=== PATIENT | female | born 1990 | race Caucasian/White ===

== ENCOUNTER 2017-07-20 06:08 | Day surgery (SDC) | payer OTHER ==
[~2017-07-20] VITALS: Ht 157.5 cm; Wt 62.5 kg
[2017-07-20 07:14] VITALS: Ht 157.5 cm; Wt 62.5 kg
[2017-07-20] MEDS ORDERED: ADVIL PO (07:15)
--- NOTE | 2017-07-20 07:35 | OPPN ---
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
[2017-07-20] MEDS ORDERED: FENTAnyl 50 MCG/ML VIAL ONE (07:57)
[2017-07-20] MEDS ORDERED: MIDAZOLAM 1 MG/ML 2 ML INJ ONE ×2 (07:57)
--- NOTE | 2017-07-20 10:37 | GILP ---
DATE OF PROCEDURE: NAME OF PROCEDURES: Esophagogastroduodenoscopy and biopsy. SURGEON: Brendan Tong MD PREOPERATIVE DIAGNOSES: 1. Abdominal pain. 2. Chronic heartburn. POSTOPERATIVE DIAGNOSES: 1. Gastroesophageal reflux disease. 2. Gastritis with erosions. 3. Gastric mucosal biopsies were taken for Helicobacter pylori test. INDICATION FOR THE PROCEDURE: Ms. Stormy Bettencourt is a 26-year-old female patient who had upper ab dominal pain and chronic heartburn, not responding to therapy. Patient was scheduled for endoscopic examination for further evaluation. The procedure and possible complications were well explained to the patient, she understood and cons ented to the procedure. DESCRIPTION OF PROCEDURE: Under the influence of fentanyl and Versed, the gastroscope was carefully introduced into the esophagus and under direct vision, it was advanced to the stomach and through t he pylorus into the duodenal bulb and descending duodenum. FINDINGS: ESOPHAGUS: The patient had gastroesophageal reflux disease. STOMACH: She had gastritis with erosions. Gastric mucosal biopsies were taken for H. pylori test. DUODENUM: Normal. She tolerated the procedure very well and there was no complication from the procedure. At the end of the procedures, she was awake with stable vital signs and she was discharged home to the care of her family. IMPRESSION: 1. Gastroesophageal reflux disease. 2. Gastritis with erosions. 3. Gastric mucosal biopsies were taken for Helicobacter pylori test. PLAN: 1. Omeprazole 40 mg p.o. q.a.m. 2. Await H. pylori test report. Dictated By: BRENDAN MESA/BRIGID Conf#: [id number] DID#: [id number]
--- NOTE | 2017-07-20 19:51 | CONS ---
DATE OF ADMISSION: 07/20/2017 DATE OF CONSULTATION: PATIENT NAME: SANG LEDBETTER TYPE OF CONSULTATION: Preoperative gastroenterology. Dear Dr. Crawford: I thank you very much for this kind referral. HISTORY OF PRESENT ILLNESS: Ms. Sang Ledbetter is a 26-year-old female patient who has been refer red to me for further evaluation of upper abdominal pain and chronic heartburn. There is no past hi story of peptic ulcer disease. The patient has been taking Advil. Her appetite has been good. No history of weight loss. No history of gallstones or liver disease. The patient had abdominal ultra sound and it was normal. Denies any change in the bowel habit or rectal bleeding. No history of in flammatory bowel disease, not a hypertensive or diabetic. No heart disease or lung problem or kidne y disease, nonsmoker. No alcohol abuse, no family history of gastrointestinal tract neoplasm. NO D RUG ALLERGIES. MEDICATIONS: Advil. PHYSICAL EXAMINATION: VITAL SIGNS: She is 5 feet 2 inches tall and weighs 130 pounds, normal heart sounds. LUNGS: Clear. ABDOMEN: Soft. No masses. Normal bowel sounds. The patient has got epigastric tenderness. NEURO LOGIC: Normal exam. IMPRESSION: 1. Upper abdominal pain and chronic heartburn, not responding to therapy. 2. The patient has been taking Advil. PLAN: 1. Pantoprazole 40 mg p.o. q.a.m. 2. Endoscopic examination for further evaluation. 3. The patient had abdominal ultrasound and it was normal. The procedure and possible complications are well explained to the patient. She understands and con sents to the procedure. I thank you once again. With warmest personal regards, Dictated By: BRENDAN MESA/BRIGID Conf#: [id number] DID#: [id number]
== END 2017-07-20 10:50 | disposition home or self-care (01) ==
LOC: GIL 06:08
PROVIDERS: ATTEND Internal Medicine Gastroenterology
DX: K21.9 Gastro-esophageal reflux disease without esophagitis (principal); K29.60 Other gastritis without bleeding
CPT/HCPCS: 43239; 84703; 87081; J2250; J3010; Z7610

== ENCOUNTER 2018-11-09 05:47 | Day surgery (SDC) | payer OTHER ==
[~2018-11-09] VITALS: Ht 157.5 cm; Wt 58.6 kg
[~2018-11-09 05:47] MED LIST: ADVIL PO
[2018-11-09 06:25] VITALS: Ht 157.5 cm; Wt 58.6 kg
[2018-11-09] MEDS ORDERED: tylenol (07:13)
[2018-11-09] MEDS ORDERED: ibuprofen (07:13)
[2018-11-09] MEDS ORDERED: omeprazole (07:13)
[2018-11-09 07:15] VITALS: BP 108/60; PULSE 68; RESP 19
[2018-11-09] MEDS ORDERED: MIDAZOLAM 1 MG/ML 2 ML INJ ONE ×2 (08:11)
[2018-11-09] MEDS ORDERED: FENTAnyl 50 MCG/ML VIAL ONE (08:11)
[2018-11-09 08:28] VITALS: BP 110/63; PULSE 65; RESP 18
--- NOTE | 2018-11-09 10:19 | CONS ---
DATE OF ADMISSION: 11/09/2018 DATE OF CONSULTATION: PATIENT NAME: SANG LEDBETTER TYPE OF CONSULTATION: Preoperative gastroenterology. Dear Dr. Crawford: I thank you very much for this kind referral. HISTORY OF PRESENT ILLNESS: Ms. Sang Ledbetter is a 28-year-old female patient who has been referr ed to me for further evaluation of upper abdominal pain and chronic heartburn, not responding to ther apy with omeprazole. The patient is not taking any nonsteroidal anti-inflammatory agents. Appetite is somewhat poor. No history of gallstones or liver disease. Denies any change in the bowel habit o r rectal bleeding. Not a hypertensive or diabetic. No heart disease, lung problem or kidney disease . SOCIAL HISTORY: Nonsmoker. No alcohol abuse. FAMILY HISTORY: No family history of gastrointestinal tract neoplasm. ALLERGIES: NO DRUG ALLERGIES. MEDICATIONS: Omeprazole. PHYSICAL EXAMINATION: VITAL SIGNS: She is 5 feet, 2 inches tall and weighs 120 pounds. HEART: Normal heart sounds. LUNGS: Clear. ABDOMEN: Soft. No masses. Normal bowel sounds. NEUROLOGIC: Normal. IMPRESSION: 1. Upper abdominal pain and chronic heartburn, not responding to therapy with omeprazole. 2. The patient states she also has got nausea and occasional vomiting. PLAN: Endoscopy for further evaluation. The procedure and possible complications are well explained to the patient. She understands and cons ents to the procedure. I thank you once again. With warmest personal regards, Dictated By: BRENDAN MESA/BRIGID Conf#: [id number] DID#: [id number]
== END 2018-11-09 10:24 | disposition home or self-care (01) ==
LOC: GIL 05:47
PROVIDERS: ATTEND Internal Medicine Gastroenterology
DX: K21.9 Gastro-esophageal reflux disease without esophagitis (principal)
CPT/HCPCS: 43239; 84703; 88305; 88312; J2250; J3010; Z7610